=== PATIENT | male | born 1985 | race African-American/Black ===

== ENCOUNTER 2016-11-30 21:02 | Emergency (ER) | payer OTHER ==
[~2016-11-30] VITALS: Ht 177.8 cm; Wt 74.8 kg
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
[~2016-11-30 21:02] MED LIST: Acetaminophen 500mg (ES) tab PO ONE; Lidocaine 1% 10mg/ml/Epi 0.005mg/ml 30ml vial INJ ONE; Lidocaine 1% MPF 10mg/ml 5ml INJ ONE; Neosporin Oint Ud Pkt TOP ONE
[2016-11-30 21:05] VITALS: BP_SYST 134; BP_DIAS 7; BP_DIAS 74
[2016-11-30 23:50] VITALS: BP 120/72
[2016-12-01 01:30] VITALS: BP 125/69
[2016-12-01] MEDS ORDERED: Cephalexin 500mg cap ORAL ONE (02:30)
[2016-12-01] MEDS ORDERED: IBUPROFEN600 MG ORAL (03:13)
[2016-12-01] MEDS ORDERED: TYLENOL325 MG ORAL (03:13)
[2016-12-01] MEDS ORDERED: KEFLEX500 MG ORAL (03:13)
[2016-12-01 03:45] VITALS: BP 118/70
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
== END 2016-12-01 03:45 | disposition home or self-care (01) ==
LOC: EDBD 21:02 → EMR 12-01 03:31
DX: S01.01XA Laceration without foreign body of scalp, initial encounter (principal); S01.81XA Laceration without foreign body of other part of head, initial encounter; S00.83XA Contusion of other part of head, initial encounter; S09.8XXA Other specified injuries of head, initial encounter; Y04.2XXA Assault by strike against or bumped into by another person, initial encounter; Y92.89 Other specified places as the place of occurrence of the external cause; F17.200 Nicotine dependence, unspecified, uncomplicated
CPT/HCPCS: 70450; 70486; 99284

== ENCOUNTER 2016-12-10 14:11 | Emergency (ER) | payer OTHER ==
[~2016-12-10] VITALS: Ht 177.8 cm; Wt 74.8 kg
[~2016-12-10 14:11] MED LIST changes: -Acetaminophen 500mg (ES) tab PO ONE; +IBUPROFEN600 MG ORAL; +KEFLEX500 MG ORAL; -Lidocaine 1% 10mg/ml/Epi 0.005mg/ml 30ml vial INJ ONE; -Lidocaine 1% MPF 10mg/ml 5ml INJ ONE; -Neosporin Oint Ud Pkt TOP ONE; +TYLENOL325 MG ORAL
[2016-12-10 14:14] VITALS: BP 130/68
[2016-12-10 14:33] VITALS: BP 128/67
[2016-12-10] MEDS ORDERED: BACITRACIN-P28.35 GM TP (14:33)
--- NOTE | 2016-12-10 14:33 | Emergency Room Report ---
History of Present Illness General Chief Complaint: Wound Recheck/Suture Removal Source: Patient Present Illness HPI 31-year-old male presents to the emergency department for staple and suture removal of lacerations that were closed here in the emergency department 10 days ago on the scalp. Patient denies erythema, discharge, tenderness, pain, fevers or chills. He is up-to-date with vaccinations. Denies CP, Palpitations, LOC, AMS, dizziness, Changes in Vision, Sensation, paresthesias, or a sudden severe headache. Allergies: Coded Allergies: No Known Allergies (Unverified , 11/30/16) Patient History Past Medical History: see triage record Past Surgical History: none Pertinent Family History: none Immunizations: UTD Reviewed Nursing Documentation: PMH: Agreed, PSxH: Agreed Nursing Documentation-PMH Past Medical History: No History, Except For Review of Systems All Other Systems: negative except mentioned in HPI Physical Exam Vital Signs Date Time Temp Pulse Resp B/P (MAP) Pulse Ox O2 Delivery O2 Flow Rate FiO2 12/10/16 14:14 97.9 69 14 130/68 99 Room Air Sp02 EP Interpretation: reviewed, normal General Appearance: no apparent distress, alert, GCS 15, non-toxic Head: normocephalic, atraumatic Eyes: bilateral eye normal inspection, bilateral eye PERRL ENT: hearing grossly normal, normal voice Neck: full range of motion Respiratory: lungs clear, normal breath sounds, speaking full sentences Cardiovascular #1: regular rate, rhythm Musculoskeletal: back normal, gait/station normal, normal range of motion, non- tender Neurologic: alert, oriented x3, responsive, motor strength/tone normal, sensory intact, speech normal Psychiatric: judgement/insight normal, memory normal, mood/affect normal Skin: normal color, no rash, warm/dry, well hydrated, wd healing/no infection noted - sutures in place in the external right ear, and sulema in place of three lacerations on the posterior scalp, no erythema, d/c or evidence of infeciton noted. Lymphatic: no adenopathy Medical Decision Making PA Attestation Dr. Leon is my supervising Physician whom patient management has been discussed with. Diagnostic Impression: Primary Impression: Encounter for removal of sutures ER Course 31-year-old male presents to the emergency department for staple and suture removal of lacerations that were closed here in the emergency department 10 days ago on the scalp. Patient denies erythema, discharge, tenderness, pain, fevers or chills. He is up-to-date with vaccinations. Denies CP, Palpitations, LOC, AMS, dizziness, Changes in Vision, Sensation, paresthesias, or a sudden severe headache. Ddx considered but are not limited to laceration, tendon injury, cellulitis, dehiscence. Vital signs: are WNL, pt. is afebrile H&PE are most consistent with: healed lacerations of the scalp and right ear. ORDERS: none required at this time, the diagnosis is clinical ED INTERVENTIONS: - 12 [place] , and 10 Sutures removed. DISCHARGE: At this time pt. is stable for d/c to home. Will provide printed patient care instructions, and any necessary prescriptions. Care plan and follow up instructions have been discussed with the patient prior to discharge. Last Vital Signs Date Time Temp Pulse Resp B/P (MAP) Pulse Ox O2 Delivery O2 Flow Rate FiO2 12/10/16 14:14 97.9 14 130/68 99 Room Air 12/10/16 14:14 69 Disposition: HOME, SELF-CARE Condition: Stable Scripts Bacitracin/Polymyxin B Sulfate (BACITRACIN-POLYMYXIN OINTMENT) 28.35 Gm Oint...g. 1 APPLIC TP BID, #28.3 GM Prov: Triny Rivas 12/10/16 Patient Instructions: Wound Closure Removal Additional Instructions: Take medications as directed. Follow up with a Primary Care Provider As needed. --Please review list of primary care clinics, if you do not already have a primary care provider Return sooner to ED if new symptoms occur, or current symptoms become worse. - Please note that this Emergency Department Report was dictated using [employer] technology software, occasionally this can lead to erroneous entry secondary to interpretation by the dictation equipment. Triny Rivas Dec 10, 2016 14:33
== END 2016-12-10 14:45 | disposition home or self-care (01) ==
LOC: EMR 14:27
DX: Z48.02 Encounter for removal of sutures (principal)
CPT/HCPCS: 99281